=== PATIENT | male | born 1940 | race Caucasian/White ===

== ENCOUNTER 2024-11-28 20:48 | Inpatient (IN) | payer MEDICARE, OTHER ==
[~2024-11-28] VITALS: Ht 170.2 cm; Wt 81.6 kg
[2024-11-28] MEDS ORDERED: HYDROMORPHONE 1 MG/1 ML DISP.SYRIN ONE (21:44)
[2024-11-28] MEDS ORDERED: ONDANSETRON 4 MG/2 ML VIAL ONE (21:44)
[2024-11-28 21:48] LABS: BASOPHILS # (AUTO) 0.1 K/UL (0.0-0.2); BASOPHILS % (AUTO) 1.4 % (0.0-2.0); EOSINOPHILS # (AUTO) 0.2 K/uL (0.0-0.7); HEMATOCRIT 40.1 % (36.7-47.1); HEMOGLOBIN 13.5 g/dL (12.5-16.3); LYMPHOCYTES # (AUTO) 1.3 K/uL (0.8-4.8); LYMPHOCYTES % (AUTO) 17.8 % (20.5-51.5); MEAN CORPUSCULAR HEMOGLOBIN 30.9 uug (23.8-33.4); MEAN CORPUSCULAR HGB CONC 34 g/dL (32.5-36.3); MEAN CORPUSCULAR VOLUME 91.6 fL (73.0-96.2); MONOCYTES # (AUTO) 0.4 K/uL (0.1-1.30); NEUTROPHILS # (AUTO) 5.2 K/uL (1.8-8.9); NEUTROPHILS % (AUTO) 71.8 % (38.5-71.5); PLATELET COUNT (AUTO) 316 K/uL (152-348); RED BLOOD CELL COUNT(AUTO) 4.37 MIL/uL (4.06-5.63); RED CELL DISTRIBUTION WIDTH 13.9 % (12.1-16.2); WHITE BLOOD COUNT (AUTO) 7.3 K/uL (3.6-10.2)
[2024-11-28 21:53] LABS: DIFFERENTIAL COMMENT 1
[2024-11-28] MEDS: HYDROMORPHONE 1 MG/1 ML DISP.SYRIN IV ONE (21:53)
[2024-11-28] MEDS: ONDANSETRON 4 MG/2 ML VIAL IV ONE (21:53)
[2024-11-28 21:58] LABS: CALCIUM 8.6 mg/dL (8.5-10.1); CARBON DIOXIDE 26 mmol/L (21-32); CHLORIDE 105 mmol/L (98-107); CREATININE 1.5 mg/dL (0.6-1.3); GLUCOSE 93 mg/dL (74-106); POTASSIUM 4.6 mmol/L (3.5-5.1); SODIUM SERUM 143 mmol/L (136-145); UREA NITROGEN, BLOOD 19 mg/dL (7-18)
[2024-11-28 22:03] LABS: ALANINE AMINOTRANSFERASE 27 U/L (16-63); ALBUMIN 3.4 g/dL (3.4-5.0); ALKALINE PHOSPHATASE 70 U/L (50-136); ASPARTATE AMINOTRANSFERASE 25 U/L (15-37); BILIRUBIN,DIRECT 0.1 mg/dL (0.0-0.2); BILIRUBIN,TOTAL 0.3 mg/dL (0.2-1.0); TOTAL PROTEIN, SERUM 6.7 g/dL (6.4-8.2)
[2024-11-28] MEDS ORDERED: ONDANSETRON 4 MG/2 ML VIAL IV PRN (22:30)
[2024-11-28] MEDS ORDERED: REMEDY ESSENTIAL ZINC PASTE 113 GM TP PRN (22:30)
[2024-11-28] MEDS: HEPARIN SODIUM,PORCINE 5,000 UNITS/ML VIAL SQ ONE (23:06)
[2024-11-29] MEDS: IV NS 1000 ML 1,000 ML IV SCH (00:20)
[2024-11-29 00:22] LABS: *BILIRUBIN,URIN NEGATIVE (NEGATIVE); *BLOOD, URINE NEGATIVE (NEGATIVE); *CLARITY,URINE CLEAR (CLEAR); *COLOR,URINE YELLOW (YELLOW); *KETONES,URINE NEGATIVE (NEGATIVE); *PROTEIN,URINE NEGATIVE (NEGATIVE); *UROBILINOGEN,URINE 0.2 E.U./dl (NORMAL); LEUKOCYTE ESTERASE ,URINE NEGATIVE (NEGATIVE); NITRITE, URINE NEGATIVE (NEGATIVE); PH,URINE 5.5 (5.0-8.0); UGLUCOSE NEGATIVE (NEGATIVE)
[2024-11-29 00:50] VITALS: BP 180/91; TEMP 98.7; O2SAT 93
[2024-11-29 00:55] VITALS: BP 153/88; TEMP 98.7; O2SAT 93
[2024-11-29] MEDS: GABAPENTIN 100 MG CAPSULE PO SCH (01:05)
[2024-11-29] MEDS: HYDROCODONE/APAP 5-325MG TABLET PO PRN (04:57)
[2024-11-29 05:51] VITALS: BP 163/98; TEMP 98.8; O2SAT 94
[2024-11-29] MEDS: hydrALAZINE HCL 25 MG TABLET PO PRN (06:08)
[2024-11-29 06:37] LABS: BASOPHILS # (AUTO) 0.1 K/UL (0.0-0.2); BASOPHILS % (AUTO) 0.7 % (0.0-2.0); EOSINOPHILS # (AUTO) 0.1 K/uL (0.0-0.7); EOSINOPHILS % (AUTO) 0.7 % (0.0-7.0); LYMPHOCYTES # (AUTO) 0.7 K/uL (0.8-4.8); LYMPHOCYTES % (AUTO) 6.7 % (20.5-51.5); MEAN CORPUSCULAR HEMOGLOBIN 30.4 uug (23.8-33.4); MEAN CORPUSCULAR HGB CONC 33 g/dL (32.5-36.3); MEAN CORPUSCULAR VOLUME 91.6 fL (73.0-96.2); MONOCYTES # (AUTO) 0.8 K/uL (0.1-1.30); MONOCYTES % (AUTO) 7.9 % (0.0-11.0); NEUTROPHILS # (AUTO) 8.6 K/uL (1.8-8.9); PLATELET COUNT (AUTO) 265 K/uL (152-348); RED BLOOD CELL COUNT(AUTO) 4.26 MIL/uL (4.06-5.63); RED CELL DISTRIBUTION WIDTH 13.7 % (12.1-16.2); WHITE BLOOD COUNT (AUTO) 10.3 K/uL (3.6-10.2)
[2024-11-29 07:01] LABS: CALCIUM 8.3 mg/dL (8.5-10.1); CARBON DIOXIDE 27 mmol/L (21-32); CHLORIDE 106 mmol/L (98-107); CREATININE 1.3 mg/dL (0.6-1.3); GLUCOSE 119 mg/dL (74-106); MAGNESIUM 2.2 mg/dL (1.8-2.4); PHOSPHOROUS 3.7 mg/dL (2.5-4.9); POTASSIUM 4.1 mmol/L (3.5-5.1); SODIUM SERUM 142 mmol/L (136-145); UREA NITROGEN, BLOOD 19 mg/dL (7-18)
[2024-11-29 07:16] LABS: DIFFERENTIAL COMMENT 1
[2024-11-29] MEDS: AMLODIPINE 5 MG TABLET PO SCH (10:54)
[2024-11-29 11:09] VITALS: BP 168/98; TEMP 98.4; O2SAT 95
[2024-11-29] MEDS: HEPARIN SODIUM,PORCINE 5,000 UNITS/ML VIAL SQ SCH (12:07)
[2024-11-29 15:49] VITALS: BP 145/88; TEMP 98.4; O2SAT 95
[2024-11-29] MEDS ORDERED: IV NS 1000 ML 1,000 ML IV ONE (16:45)
[2024-11-29 19:52] VITALS: BP 139/82; TEMP 99.2; O2SAT 95
[2024-11-30] VITALS (7 sets, daily range): BP systolic 142–161; BP diastolic 69–93; TEMP 98.2–99.1; O2SAT 95–100
[2024-11-30] MEDS: IV NS 1000 ML 1,000 ML IV PRN (01:19)
[2024-11-30 06:40] LABS: BASOPHILS # (AUTO) 0.1 K/UL (0.0-0.2); EOSINOPHILS # (AUTO) 0.3 K/uL (0.0-0.7); EOSINOPHILS % (AUTO) 3.5 % (0.0-7.0); HEMATOCRIT 38.4 % (36.7-47.1); HEMOGLOBIN 12.9 g/dL (12.5-16.3); LYMPHOCYTES % (AUTO) 11.9 % (20.5-51.5); MEAN CORPUSCULAR HEMOGLOBIN 30.9 uug (23.8-33.4); MEAN CORPUSCULAR HGB CONC 34 g/dL (32.5-36.3); MONOCYTES # (AUTO) 0.8 K/uL (0.1-1.30); MONOCYTES % (AUTO) 10.1 % (0.0-11.0); NEUTROPHILS # (AUTO) 5.9 K/uL (1.8-8.9); NEUTROPHILS % (AUTO) 73.5 % (38.5-71.5); PLATELET COUNT (AUTO) 230 K/uL (152-348); RED BLOOD CELL COUNT(AUTO) 4.18 MIL/uL (4.06-5.63); RED CELL DISTRIBUTION WIDTH 13.7 % (12.1-16.2)
[2024-11-30 06:44] LABS: DIFFERENTIAL COMMENT 1
[2024-11-30 06:51] LABS: CALCIUM 8.2 mg/dL (8.5-10.1); CARBON DIOXIDE 28 mmol/L (21-32); CHLORIDE 105 mmol/L (98-107); CREATININE 1.1 mg/dL (0.6-1.3); GLUCOSE 113 mg/dL (74-106); MAGNESIUM 2.1 mg/dL (1.8-2.4); PHOSPHOROUS 2.9 mg/dL (2.5-4.9); POTASSIUM 3.9 mmol/L (3.5-5.1); SODIUM SERUM 141 mmol/L (136-145); UREA NITROGEN, BLOOD 13 mg/dL (7-18)
[2024-11-30] MEDS ORDERED: VANCOMYCIN 1000 MG VIAL ONE (11:10)
[2024-11-30] MEDS ORDERED: PROPOFOL 200 MG/20 ML BOTTLE ONE (12:00)
[2024-11-30] MEDS ORDERED: FENTANYL CITRATE 100 MCG/2 ML AMPUL ONE ×2 (12:48→12:55)
[2024-11-30] MEDS ORDERED: ROCURONIUM BROMIDE 50 MG/5 ML VIAL ONE (12:49)
[2024-11-30] MEDS ORDERED: MEPERIDINE 25 MG/1 ML DISP.SYRIN IV PRN (14:45)
[2024-11-30] MEDS ORDERED: IV D5W-0.45% NS +20 KCL 1,000 ML IV ONE (15:01)
[2024-11-30] MEDS: POTASSIUM CHLORIDE 20 MEQ in IV D5 1/2 NS 1000 ML 1,000 ML IV PRN (16:53)
[2024-11-30] MEDS: CEFAZOLIN 1 G in IV DEXTROSE 5% 50 ML IV SCH (20:50)
[2024-12-01 05:57] VITALS: BP 124/88; TEMP 97.4; O2SAT 96
[2024-12-01 06:33] LABS: CALCIUM 8.4 mg/dL (8.5-10.1); CARBON DIOXIDE 27 mmol/L (21-32); CHLORIDE 105 mmol/L (98-107); CREATININE 1.2 mg/dL (0.6-1.3); GLUCOSE 149 mg/dL (74-106); POTASSIUM 4.2 mmol/L (3.5-5.1); SODIUM SERUM 141 mmol/L (136-145); UREA NITROGEN, BLOOD 13 mg/dL (7-18)
[2024-12-01 06:41] LABS: BASOPHILS % (AUTO) 0.1 % (0.0-2.0); HEMATOCRIT 37.2 % (36.7-47.1); HEMOGLOBIN 12.4 g/dL (12.5-16.3); LYMPHOCYTES # (AUTO) 0.8 K/uL (0.8-4.8); LYMPHOCYTES % (AUTO) 6.5 % (20.5-51.5); MEAN CORPUSCULAR HEMOGLOBIN 30.8 uug (23.8-33.4); MEAN CORPUSCULAR HGB CONC 33 g/dL (32.5-36.3); MEAN CORPUSCULAR VOLUME 92.6 fL (73.0-96.2); MONOCYTES # (AUTO) 1.6 K/uL (0.1-1.30); MONOCYTES % (AUTO) 13.3 % (0.0-11.0); NEUTROPHILS # (AUTO) 9.4 K/uL (1.8-8.9); NEUTROPHILS % (AUTO) 80.1 % (38.5-71.5); PLATELET COUNT (AUTO) 118 K/uL (152-348); RED BLOOD CELL COUNT(AUTO) 4.02 MIL/uL (4.06-5.63); WHITE BLOOD COUNT (AUTO) 11.8 K/uL (3.6-10.2)
[2024-12-01 07:02] LABS: DIFFERENTIAL COMMENT 1
[2024-12-01] MEDS: MORPHINE SULFATE 4 MG/1 ML DISP.SYRIN IV PRN (09:52)
[2024-12-01] MEDS: APIXABAN 2.5 MG TABLET PO SCH (10:57)
[2024-12-01 11:03] VITALS: BP 134/75; TEMP 98.8; O2SAT 96
[2024-12-01 15:22] VITALS: BP 127/66; TEMP 99.5; O2SAT 96
[2024-12-01 19:00] VITALS: BP 131/64; TEMP 98.1; O2SAT 95
[2024-12-02] VITALS (8 sets, daily range): BP systolic 100–138; BP diastolic 46–66; TEMP 97.4–102; O2SAT 73–97
[2024-12-02] MEDS: HYDROCODONE/APAP 10-325 MG TABLET PO PRN (04:30)
[2024-12-02 06:57] LABS: BASOPHILS # (AUTO) 0.1 K/UL (0.0-0.2); BASOPHILS % (AUTO) 0.6 % (0.0-2.0); EOSINOPHILS # (AUTO) 0.1 K/uL (0.0-0.7); EOSINOPHILS % (AUTO) 1.2 % (0.0-7.0); HEMATOCRIT 31.2 % (36.7-47.1); HEMOGLOBIN 10.5 g/dL (12.5-16.3); LYMPHOCYTES # (AUTO) 1.2 K/uL (0.8-4.8); LYMPHOCYTES % (AUTO) 13.3 % (20.5-51.5); MEAN CORPUSCULAR HEMOGLOBIN 31.2 uug (23.8-33.4); MEAN CORPUSCULAR HGB CONC 34 g/dL (32.5-36.3); MEAN CORPUSCULAR VOLUME 92.6 fL (73.0-96.2); MONOCYTES # (AUTO) 1.3 K/uL (0.1-1.30); MONOCYTES % (AUTO) 14.9 % (0.0-11.0); NEUTROPHILS # (AUTO) 6.3 K/uL (1.8-8.9); PLATELET COUNT (AUTO) 229 K/uL (152-348); RED BLOOD CELL COUNT(AUTO) 3.37 MIL/uL (4.06-5.63)
[2024-12-02 07:11] LABS: DIFFERENTIAL COMMENT 1
[2024-12-02 07:16] LABS: CALCIUM 8.3 mg/dL (8.5-10.1); CARBON DIOXIDE 26 mmol/L (21-32); CHLORIDE 107 mmol/L (98-107); CREATININE 1.3 mg/dL (0.6-1.3); GLUCOSE 112 mg/dL (74-106); POTASSIUM 4.2 mmol/L (3.5-5.1); SODIUM SERUM 140 mmol/L (136-145); UREA NITROGEN, BLOOD 14 mg/dL (7-18)
[2024-12-02] MEDS ORDERED: HYDROCODONE/APAP 10-325 MG TABLET PO PRN (13:45)
[2024-12-02] MEDS: SOD FERRIC GLUC COMPLX/SUCROSE 125 MG in IV NORMAL SALINE 100 ML IV SCH (14:10)
[2024-12-02] MEDS: THIAMINE HCL 200 MG/2 ML VIAL IM ONE (14:11)
[2024-12-02] MEDS: ACETAMINOPHEN 325 MG TABLET PO PRN (15:08)
[2024-12-02] MEDS: DOCUSATE SODIUM 100 MG CAPSULE PO SCH (21:36)
[2024-12-03 05:17] VITALS: O2SAT 97
[2024-12-03 05:57] VITALS: BP 139/70; TEMP 98.3; O2SAT 94
[2024-12-03 06:54] LABS: BASOPHILS % (AUTO) 0.6 % (0.0-2.0); EOSINOPHILS # (AUTO) 0.3 K/uL (0.0-0.7); EOSINOPHILS % (AUTO) 3.3 % (0.0-7.0); HEMOGLOBIN 10.5 g/dL (12.5-16.3); LYMPHOCYTES # (AUTO) 1.1 K/uL (0.8-4.8); LYMPHOCYTES % (AUTO) 14.2 % (20.5-51.5); MEAN CORPUSCULAR HEMOGLOBIN 31.3 uug (23.8-33.4); MEAN CORPUSCULAR HGB CONC 34 g/dL (32.5-36.3); MEAN CORPUSCULAR VOLUME 92.5 fL (73.0-96.2); MONOCYTES # (AUTO) 1.1 K/uL (0.1-1.30); MONOCYTES % (AUTO) 14.1 % (0.0-11.0); NEUTROPHILS # (AUTO) 5.4 K/uL (1.8-8.9); NEUTROPHILS % (AUTO) 67.8 % (38.5-71.5); PLATELET COUNT (AUTO) 259 K/uL (152-348); RED BLOOD CELL COUNT(AUTO) 3.35 MIL/uL (4.06-5.63); RED CELL DISTRIBUTION WIDTH 13.7 % (12.1-16.2)
[2024-12-03 07:24] LABS: DIFFERENTIAL COMMENT 1
[2024-12-03] MEDS: MAGNESIUM HYDROXIDE 30 ML LIQUID UDC PO PRN (09:13)
[2024-12-03] MEDS ORDERED: APIX2.5T PO (10:30)
[2024-12-03] MEDS ORDERED: HYDR-3980 PO (10:30)
[2024-12-03] MEDS ORDERED: AMLO-212 PO (10:30)
[2024-12-03] MEDS ORDERED: ACET325T53 PO (10:30)
[2024-12-03] MEDS ORDERED: THIA100T74 PO (10:30)
[2024-12-03] MEDS ORDERED: DOCU-141 PO (10:30)
[2024-12-03] MEDS ORDERED: GABA-532 PO (10:30)
[2024-12-03 11:22] VITALS: BP 129/68; TEMP 100.7; O2SAT 94
[2024-12-03 11:53] VITALS: TEMP 99.1
[2024-12-03] MEDS: LACTULOSE 20 G/30 ML LIQUID UDC PO ONE (12:29)
[2024-12-03 15:45] VITALS: BP 144/79; TEMP 98.3; O2SAT 96
== END 2024-12-03 18:00 | DRG 521 ==
LOC: ER 20:54 → MEDSURG3 21:50
PROVIDERS: ADMIT Nurse Practitioner Acute Care; ATTEND Nurse Practitioner Acute Care
PROC: 0SRR0JA Replacement of Right Hip Joint, Femoral Surface with Synthetic Substitute, Uncemented, Open Approach (ICD-10-PCS; principal; 2024-11-30 12:30)
DX: S72.011A Unspecified intracapsular fracture of right femur, initial encounter for closed fracture (principal); N17.0 Acute kidney failure with tubular necrosis; N17.9 Acute kidney failure, unspecified; W10.9XXA Fall (on) (from) unspecified stairs and steps, initial encounter; Y92.009 Unspecified place in unspecified non-institutional (private) residence as the place of occurrence of the external cause; G62.9 Polyneuropathy, unspecified; I10 Essential (primary) hypertension; Z96.612 Presence of left artificial shoulder joint; Z87.891 Personal history of nicotine dependence
CPT/HCPCS: 36415; 71045; 73501; 73502; 83735; 84100; 85025; 85730; 93307; A4606; A4663; G0378; J0690; J1100; J1171; J1644; J2270; J2405; J2916; J3010; J3370; J3411; J3480; J3490; J7040

== ENCOUNTER 2024-12-03 18:28 | Inpatient (IN) | payer MEDICARE, OTHER ==
[~2024-12-03 18:28] MED LIST: ACET325T53 PO; AMLO-212 PO; APIX2.5T PO; DOCU-141 PO; GABA-532 PO; HYDR-3980 PO; THIA100T74 PO
[2024-12-03] MEDS ORDERED: ACETAMINOPHEN 325 MG TABLET-SA PATIENTS-PAIN ONLY PO PRN (18:45)
[2024-12-03 18:52] VITALS: BP 125/66; TEMP 98.1; O2SAT 92
[2024-12-03 20:00] VITALS: BP 101/60; TEMP 97.2; O2SAT 98
[2024-12-03] MEDS: DOCUSATE SODIUM 100 MG CAPSULE PO SCH (20:44)
[2024-12-03] MEDS: ACETAMINOPHEN 325 MG TABLET PO PRN (20:46)
[2024-12-03] MEDS: APIXABAN 2.5 MG TABLET PO SCH (20:49)
[2024-12-04 06:00] VITALS: BP 153/76; TEMP 98.7; O2SAT 95
[2024-12-04] MEDS: THIAMINE HCL 100 MG TABLET PO SCH (08:51)
[2024-12-04] MEDS: GABAPENTIN 100 MG CAPSULE PO SCH (08:51)
[2024-12-04] MEDS: AMLODIPINE 5 MG TABLET PO SCH (08:51)
[2024-12-04] MEDS: MIRALAX 17 GM POWD.PACK PO SCH (08:51)
[2024-12-04] MEDS: HYDROCODONE/APAP 10-325 MG TABLET PO PRN (08:53)
[2024-12-04 09:08] VITALS: BP 148/77; TEMP 99; O2SAT 91
[2024-12-04 15:32] VITALS: BP 145/88; TEMP 97.8; O2SAT 91
[2024-12-04 21:55] VITALS: BP 124/57; TEMP 99.5; O2SAT 92
[2024-12-04 22:50] VITALS: TEMP 100.8
[2024-12-05 02:16] VITALS: TEMP 98.6
[2024-12-05 06:33] VITALS: BP 115/57; TEMP 98.5; O2SAT 92
[2024-12-05 07:45] LABS: BASOPHILS # (AUTO) 0.1 K/UL (0.0-0.2); BASOPHILS % (AUTO) 0.7 % (0.0-2.0); EOSINOPHILS # (AUTO) 0.2 K/uL (0.0-0.7); EOSINOPHILS % (AUTO) 3.2 % (0.0-7.0); HEMATOCRIT 31.5 % (36.7-47.1); HEMOGLOBIN 10.7 g/dL (12.5-16.3); LYMPHOCYTES # (AUTO) 0.8 K/uL (0.8-4.8); LYMPHOCYTES % (AUTO) 11.1 % (20.5-51.5); MEAN CORPUSCULAR HGB CONC 34 g/dL (32.5-36.3); MEAN CORPUSCULAR VOLUME 91.2 fL (73.0-96.2); MONOCYTES % (AUTO) 13.7 % (0.0-11.0); NEUTROPHILS # (AUTO) 5.1 K/uL (1.8-8.9); NEUTROPHILS % (AUTO) 71.3 % (38.5-71.5); PLATELET COUNT (AUTO) 364 K/uL (152-348); RED BLOOD CELL COUNT(AUTO) 3.45 MIL/uL (4.06-5.63); RED CELL DISTRIBUTION WIDTH 13.4 % (12.1-16.2); WHITE BLOOD COUNT (AUTO) 7.1 K/uL (3.6-10.2)
[2024-12-05 07:47] LABS: CARBON DIOXIDE 30 mmol/L (21-32); CHLORIDE 102 mmol/L (98-107); CREATININE 1.2 mg/dL (0.6-1.3); GLUCOSE 107 mg/dL (74-106); MAGNESIUM 2.5 mg/dL (1.8-2.4); PHOSPHOROUS 3.5 mg/dL (2.5-4.9); POTASSIUM 4.2 mmol/L (3.5-5.1); SODIUM SERUM 140 mmol/L (136-145); UREA NITROGEN, BLOOD 17 mg/dL (7-18)
[2024-12-05 08:00] VITALS: BP 156/82; TEMP 97; O2SAT 97
[2024-12-05] MEDS: ARGININE/GLUTAMINE/CALCIUM BMB 1 EACH POWD.PACK PO SCH (09:12)
[2024-12-05] MEDS: HYDROCODONE/APAP 10-325 MG TABLET PO SCH (09:14)
[2024-12-05 16:00] VITALS: BP 119/74; TEMP 97.6; O2SAT 97
[2024-12-05 21:08] VITALS: BP 130/70; TEMP 100.2; O2SAT 91
[2024-12-05 22:23] VITALS: TEMP 99.5; O2SAT 92
[2024-12-06 07:25] VITALS: BP 129/77; TEMP 98.3; O2SAT 92
[2024-12-06 09:00] VITALS: BP 99/56; TEMP 98.9; O2SAT 93
[2024-12-06 17:00] VITALS: BP 129/69; TEMP 98.9; O2SAT 96
[2024-12-06 19:50] VITALS: BP 138/72; TEMP 98.3; O2SAT 96
[2024-12-06] MEDS: SENNOSIDES 1 TABLET PO SCH (21:00)
[2024-12-07 05:51] VITALS: BP 126/83; TEMP 98.3; O2SAT 94
[2024-12-07 08:00] VITALS: TEMP 97.8
[2024-12-07 16:46] VITALS: TEMP 97.8
[2024-12-07 20:00] VITALS: BP 113/55; TEMP 97.8; O2SAT 100
[2024-12-08 06:00] VITALS: BP 127/58; TEMP 97.1; O2SAT 98
[2024-12-08 07:52] VITALS: BP 134/70; TEMP 97.5; O2SAT 94
[2024-12-08 11:16] LABS: *BILIRUBIN,URIN NEGATIVE (NEGATIVE); *BLOOD, URINE NEGATIVE (NEGATIVE); *CLARITY,URINE CLEAR (CLEAR); *COLOR,URINE YELLOW (YELLOW); *KETONES,URINE NEGATIVE (NEGATIVE); *PROTEIN,URINE NEGATIVE (NEGATIVE); LEUKOCYTE ESTERASE ,URINE NEGATIVE (NEGATIVE); NITRITE, URINE NEGATIVE (NEGATIVE); UGLUCOSE NEGATIVE (NEGATIVE)
[2024-12-08 11:17] LABS: BACTERIA,URINE FEW /HPF (NONE SEEN); WBC,URINE 0-3 /HPF (0-3)
[2024-12-08 16:09] VITALS: BP 127/58; TEMP 97.4; O2SAT 93
[2024-12-08 20:00] VITALS: BP 113/54; TEMP 97.9; O2SAT 95
[2024-12-09 07:23] VITALS: BP 127/62; TEMP 97.6; O2SAT 99
[2024-12-09 09:07] VITALS: TEMP 98.1; O2SAT 98
[2024-12-09 16:32] VITALS: BP 152/90; TEMP 97.9; O2SAT 95
[2024-12-09 21:12] VITALS: BP 121/67; TEMP 98; O2SAT 96
[2024-12-10 06:17] VITALS: BP 143/86; TEMP 97.9; O2SAT 98
[2024-12-10 07:42] VITALS: BP 159/84; TEMP 97.2; O2SAT 96
[2024-12-10 15:59] VITALS: BP 132/69; TEMP 97.6; O2SAT 97
[2024-12-10] MEDS: REMEDY ESSENTIAL ZINC PASTE 113 GM TOP PRN (16:26)
[2024-12-10 20:29] VITALS: BP 121/60; TEMP 97.6; O2SAT 96
[2024-12-11 06:04] VITALS: BP 144/78; TEMP 97.8; O2SAT 95
[2024-12-11 07:56] LABS: BASOPHILS # (AUTO) 0.1 K/UL (0.0-0.2); BASOPHILS % (AUTO) 1.6 % (0.0-2.0); EOSINOPHILS # (AUTO) 0.3 K/uL (0.0-0.7); EOSINOPHILS % (AUTO) 4.8 % (0.0-7.0); HEMOGLOBIN 10.8 g/dL (12.5-16.3); LYMPHOCYTES # (AUTO) 1.5 K/uL (0.8-4.8); LYMPHOCYTES % (AUTO) 20.7 % (20.5-51.5); MEAN CORPUSCULAR HEMOGLOBIN 30.7 uug (23.8-33.4); MEAN CORPUSCULAR HGB CONC 34 g/dL (32.5-36.3); MEAN CORPUSCULAR VOLUME 90.6 fL (73.0-96.2); MONOCYTES # (AUTO) 0.7 K/uL (0.1-1.30); MONOCYTES % (AUTO) 10.1 % (0.0-11.0); NEUTROPHILS # (AUTO) 4.6 K/uL (1.8-8.9); NEUTROPHILS % (AUTO) 62.8 % (38.5-71.5); PLATELET COUNT (AUTO) 631 K/uL (152-348); RED BLOOD CELL COUNT(AUTO) 3.53 MIL/uL (4.06-5.63); RED CELL DISTRIBUTION WIDTH 13.8 % (12.1-16.2); WHITE BLOOD COUNT (AUTO) 7.3 K/uL (3.6-10.2)
[2024-12-11 08:00] VITALS: BP 152/86; TEMP 98.2; O2SAT 93
[2024-12-11 08:06] LABS: DIFFERENTIAL COMMENT 1
[2024-12-11 08:12] LABS: IRON, SERUM 20 ug/dL (50-175)
[2024-12-11 08:24] LABS: THYROID STIMULATING HORMONE 0.987 mIU/mL (0.358-3.740)
[2024-12-11 08:39] LABS: ALANINE AMINOTRANSFERASE 40 U/L (16-63); ALBUMIN 2.4 g/dL (3.4-5.0); ALKALINE PHOSPHATASE 126 U/L (50-136); ASPARTATE AMINOTRANSFERASE 19 U/L (15-37); BILIRUBIN,TOTAL 0.4 mg/dL (0.2-1.0); CARBON DIOXIDE 30 mmol/L (21-32); CHLORIDE 103 mmol/L (98-107); CHOLESTEROL 174 mg/dL (<200); CREATININE 1.2 mg/dL (0.6-1.3); GLUCOSE 97 mg/dL (74-106); HDL CHOLESTEROL 35 mg/dL (40-60); MAGNESIUM 2.2 mg/dL (1.8-2.4); PHOSPHOROUS 4.6 mg/dL (2.5-4.9); POTASSIUM 4.1 mmol/L (3.5-5.1); SODIUM SERUM 138 mmol/L (136-145); TOTAL PROTEIN, SERUM 6.2 g/dL (6.4-8.2); TRIGLYCERIDES 127 MG/DL (30-150); UREA NITROGEN, BLOOD 19 mg/dL (7-18)
[2024-12-11 17:00] VITALS: BP 119/60; TEMP 98; O2SAT 96
[2024-12-11 19:25] VITALS: BP 110/59; TEMP 98.3; O2SAT 93
[2024-12-12 06:36] VITALS: BP 135/71; TEMP 98.5; O2SAT 95
[2024-12-12 08:00] VITALS: TEMP 98
[2024-12-12 17:12] VITALS: BP 120/49; TEMP 98.2; O2SAT 93
[2024-12-12 19:55] VITALS: BP 103/59; TEMP 98; O2SAT 96
[2024-12-12] MEDS: ATORVASTATIN 10 MG TABLET PO SCH (20:26)
[2024-12-13 06:31] VITALS: BP 139/80; TEMP 98.1; O2SAT 95
[2024-12-13 08:00] VITALS: BP 142/80; TEMP 97.9; O2SAT 94
[2024-12-14 06:04] VITALS: BP 139/79; TEMP 97.9; O2SAT 94
[2024-12-14 08:31] VITALS: BP 134/73; TEMP 98.3; O2SAT 95
[2024-12-14] MEDS: FERROUS GLUCONATE 324 MG TABLET PO SCH (12:20)
[2024-12-14 16:06] VITALS: BP 115/62; TEMP 98.3; O2SAT 95
[2024-12-14 20:35] VITALS: BP 116/63; TEMP 97.8; O2SAT 96
[2024-12-15 06:55] VITALS: BP 135/82; TEMP 98.5; O2SAT 96
[2024-12-15 08:00] VITALS: BP 136/75; TEMP 98; O2SAT 94
[2024-12-15 16:11] VITALS: BP 128/68; TEMP 98.1; O2SAT 95
[2024-12-15 23:52] VITALS: BP 100/53; TEMP 97.7; O2SAT 94
[2024-12-16 06:07] VITALS: BP 139/71; TEMP 98.3; O2SAT 96
[2024-12-16 16:23] VITALS: BP 120/65; TEMP 98.1; O2SAT 96
[2024-12-16 19:42] VITALS: BP 131/74; TEMP 97.7; O2SAT 95
[2024-12-17 06:43] VITALS: BP 116/50; TEMP 97.4; O2SAT 98
[2024-12-17 19:30] VITALS: BP 110/60; TEMP 98.4; O2SAT 96
[2024-12-18 05:49] VITALS: BP 149/86; TEMP 98.3; O2SAT 92
[2024-12-18 08:00] VITALS: BP 144/78; TEMP 98.2; O2SAT 95
[2024-12-18] MEDS ORDERED: GLUCERNA 1.2 1000ML LIQUID GT PRN (12:15)
[2024-12-18 16:18] VITALS: BP 146/69; TEMP 98.8; O2SAT 95
[2024-12-18 21:55] VITALS: BP 123/69; TEMP 99; O2SAT 93
[2024-12-19 06:57] VITALS: BP 145/74; TEMP 98.9; O2SAT 93
[2024-12-19 08:32] VITALS: BP 149/77; TEMP 98.4; O2SAT 95
== END 2024-12-19 13:30 | disposition home health service (06) | DRG 559 ==
PROVIDERS: ADMIT Physical Medicine & Rehabilitation Pain Medicine; ATTEND Physical Medicine & Rehabilitation Pain Medicine
DX: Z47.1 Aftercare following joint replacement surgery (principal); N17.0 Acute kidney failure with tubular necrosis; D62 Acute posthemorrhagic anemia; D68.59 Other primary thrombophilia; Z96.641 Presence of right artificial hip joint; G62.9 Polyneuropathy, unspecified; I10 Essential (primary) hypertension; K59.00 Constipation, unspecified; Z91.81 History of falling; E66.9 Obesity, unspecified; Z68.28 Body mass index [BMI] 28.0-28.9, adult; E78.5 Hyperlipidemia, unspecified; R42 Dizziness and giddiness
CPT/HCPCS: 36415; 73502; 83550; 83735; 84100; 84443; 85025; 87077; 87086; 97535-GO-CO; A4663